=== PATIENT | male | born 2000 | race Caucasian/White ===

== ENCOUNTER 2022-01-22 15:31 | Emergency (ER) | payer MEDICAID ==
[~2022-01-22] VITALS: Ht 170.2 cm; Wt 76.0 kg
[2022-01-22] MEDS ORDERED: AZIT500T8 MT (18:16)
[2022-01-22] MEDS ORDERED: IMOD MT (18:16)
[2022-01-22 18:25] VITALS: BP 112/88
== END 2022-01-22 18:26 | disposition home or self-care (01) ==
LOC: ER 15:31
DX: K52.89 Other specified noninfective gastroenteritis and colitis (principal); A08.8 Other specified intestinal infections
CPT/HCPCS: 99283